=== PATIENT | female | born 1970 | race Caucasian/White ===

== ENCOUNTER 2017-09-06 18:36 | Emergency (ER) | payer SELFPAY, OTHER ==
[2017-09-06 18:57] LABS: ADD MAN DIFF? NO
[2017-09-06 19:00] LABS: BASO # 0.1 x10^3/uL (0.0-0.2); BASO % 1 % (0-3); EOS # 0.1 x10^3/uL (0.0-0.7); EOS % 1 % (0-3); HEMATOCRIT 34.8 % (36.0-47.0); HEMOGLOBIN 11.6 g/dL (12.0-15.5); LYMPH % 30 % (24-48); MEAN CORPUSCULAR HEMOGLOBIN 33 pg (25-35); MEAN CORPUSCULAR HGB CONC 33 g/dL (31-37); MEAN CORPUSCULAR VOLUME 99 fL (79-100); MONO # 0.8 x10^3/uL (0.0-1.1); MONO % 8 % (0-9); NEUT % 60 % (31-73); PLATELET COUNT 355 x10^3/uL (140-400); RED CELL DISTRIBUTION WIDTH 14.4 % (11.5-14.5); WHITE BLOOD COUNT 9.9 x10^3/uL (4.0-11.0)
[2017-09-06] MEDS: IV NORMAL SALINE 1000ML BAG 1,000 ML IV (19:00)
[2017-09-06 19:01] LABS: URINE HCG POC HCG NEGATIVE (Negative)
[2017-09-06 19:02] LABS: BILIRUBIN,URINE NEGATIVE (NEG); CLARITY,URINE CLEAR; COLOR,URINE YELLOW; GLUCOSE,URINE NEGATIVE (NEG); NITRITE,URINE NEGATIVE (NEG); PH,URINE 5.5; PROTEIN,URINE NEGATIVE (NEG-TRACE); UROBILINOGEN,URINE 0.2 mg/dL (0.2 mg/dL)
[2017-09-06] MEDS: LIDOCAINE 1%/EPI 1:100,000 20 ML VIAL. IJ (19:06)
[2017-09-06] MEDS: DIPHTH,PERTUSS(ACELL),TET TOX 0.5 ML DISP.SYRIN. VAX IM (19:07)
[2017-09-06 19:08] LABS: BARBITURATES NEG (NEG); BENZODIAZEPINES NEG (NEG); CANNABINOIDS NEG (NEG); COCAINE NEG (NEG); METHADONE NEG (NEG); OPIATES NEG (NEG); PHENCYCLIDINE NEG (NEG)
[2017-09-06 19:09] LABS: AMPHETAMINE/METHAMPHETAMINE NEG (NEG); ETHANOL, URINE POS (NEG); INR 1.1 (0.8-1.1); PARTIAL THROMBOPLASTIN TIME 23 SEC (24-38); PROTHROMBIN TIME PATIENT 13.7 SEC (11.7-14.0)
[2017-09-06 19:10] LABS: BACTERIA,URINE MANY /HPF (0-FEW); HYALINE CASTS, URINE MODERATE /HPF; RBC,URINE OCC /HPF (0-2); SQUAMOUS EPITHELIAL CELL,UR MOD /LPF
[2017-09-06 19:12] LABS: NEG OBC UR NEG; POS OBC UR POS; U PREG PATIENT NEGATIVE (NEG)
[2017-09-06 19:18] LABS: ETHANOL 172 mg/dL (0-10); SALIC < 2.8 mg/dL (2.8-20.0)
[2017-09-06 19:19] LABS: ACETAMIN < 2 mcg/ml (10-30)
[2017-09-06 19:20] LABS: ALBUMIN 3.4 g/dL (3.4-5.0); ALK PHOS 51 U/L (46-116); ALT (SGPT) 38 U/L (14-59); ANION GAP 20 (6-14); AST (SGOT) 45 U/L (15-37); BLOOD UREA NITROGEN 7 mg/dL (7-20); CALCIUM 7.4 mg/dL (8.5-10.1); CARBON DIOXIDE 17 mmol/L (21-32); CHLORIDE 99 mmol/L (98-107); CREATININE 0.9 mg/dL (0.6-1.0); DIRECT BILIRUBIN 0.1 mg/dL (0.0-0.2); GFR 67.1; GLUCOSE 143 mg/dL (70-99); SODIUM 136 mmol/L (136-145); TOTAL BILIRUBIN 0.3 mg/dL (0.2-1.0)
[2017-09-06 19:23] LABS: POTASSIUM 2.8 mmol/L (3.5-5.1)
[2017-09-06 19:38] LABS: MAGNESIUM 1.7 mg/dL (1.8-2.4)
[2017-09-06] MEDS: NEOMY/BACITR/POLYMYXIN OINT PACKET. TP (19:50)
[2017-09-06] MEDS: MAGNESIUM SULFATE 2GM 50 ML IV (20:06)
[2017-09-06] MEDS: POTASSIUM CHLORIDE 20 MEQ TABLET.ER. PO (20:07)
[2017-09-06] MEDS: POTASSIUM CL 40MEQ IN 0.9%NACL 1,000 ML IV (20:07)
[2017-09-06] MEDS ORDERED: ONDANSETRON PF 4 MG/2 ML VIAL. (20:40)
[2017-09-06] MEDS: ONDANSETRON PF 4 MG/2 ML VIAL. IV (20:42)
[2017-09-06] MEDS: LORazepam 1 MG TABLET PO ×2 (20:43→23:10)
[2017-09-07] MEDS: ACETAMINOPHEN 325 MG TABLET. PO (01:07)
[2017-09-07] MEDS ORDERED: ONDANSETRON PF 4 MG/2 ML VIAL. (01:27)
[2017-09-07] MEDS: ONDANSETRON PF 4 MG/2 ML VIAL. IV (01:39)
[2017-09-07] MEDS ORDERED: ONDANSETRON ODT 4 MG TAB.RAPDIS. PO (01:45)
== END 2017-09-07 02:55 ==
LOC: ER 09-07 02:55
DX: S61.511A Laceration without foreign body of right wrist, initial encounter (principal); S51.012A Laceration without foreign body of left elbow, initial encounter; T14.91XA Suicide attempt, initial encounter; E87.6 Hypokalemia; F32.9 Major depressive disorder, single episode, unspecified; E03.9 Hypothyroidism, unspecified; Z88.5 Allergy status to narcotic agent; X78.9XXA Intentional self-harm by unspecified sharp object, initial encounter; Y93.89 Activity, other specified; Y92.89 Other specified places as the place of occurrence of the external cause; Y99.8 Other external cause status
CPT/HCPCS: 12005; 36415; 80048; 80076; 80307; 80329; 81001; 81025; 83735; 85025; 85610; 85730; 90471; 90715; 93005; 96365; 96366; 96368; 96375; 96376; 99285-25; G0480; G6039; J2405; J3475; J3480; J3490; J7030